=== PATIENT | male | born 1940 | race Caucasian/White ===

== ENCOUNTER 2018-10-03 16:42 | Emergency (ER) | payer OTHER ==
[~2018-10-03] VITALS: Wt 97.6 kg
[2018-10-03 16:48] VITALS: Wt 97.6 kg
[2018-10-03] MEDS ORDERED: SODIUM CHLORIDE 0.9% 1L BAG IV* STA (17:28)
[2018-10-03] MEDS ORDERED: ACETAMINOPHEN 325 MG TAB PO ONE (17:30)
[2018-10-03] MEDS ORDERED: morphine 4 MG/ML VIAL IV STA (17:34)
[2018-10-03] MEDS ORDERED: ONDANSETRON 4 MG INJ IV STA (17:34)
[2018-10-03] MEDS ORDERED: PIPER-TAZO 3.375 GM IV (PMX) 100 ML IVPB STA (17:37)
--- NOTE | 2018-10-03 17:37 | ERD ---
ER Documentation Chief Complaint Chief Complaint bib son for abd. pain x 3 days, mid abd. HPI Pleasant 78-year-old gentleman with possible recent diagnosis of colon cancer though being followed without chemo or radiation. Patient has a history of hypertension. He presents with 3 days of right-sided abdominal pain that is now worse, 8 out of 10. No nausea vomiting diarrhea or constipation. Noted to have a fever at triage. No chest pain cough or shortness of breath. ROS All systems reviewed and are negative except as per history of present illness. Medications Home Meds Reported Medications Tamsulosin Hcl* (Tamsulosin Hcl*) 0.4 Mg Cap.er.24h, 0.4 MG PO DAILY, CAP 10/03/18 [place]-3S/Dha/Epa/Fish Oil/D3 (FISH OIL + D3 SOFTGEL) 1 Each Capsule, 1 EACH PO DAILY, CAP 10/03/18 Trospium Chloride (Trospium Chloride) 20 Mg Tablet, 20 MG PO QHS, TAB 10/03/18 Atorvastatin Calcium* (Atorvastatin Calcium*) 20 Mg Tablet, 20 MG PO QHS, #30 TAB 10/03/18 Mesalamine (Lialda) 1.2 Gm Tablet.dr, 4.8 GM PO 10/03/18 Aspirin* (Aspirin* EC) 81 Mg Tablet.dr, 81 MG PO DAILY, TAB 10/03/18 Allergies Allergies: Coded Allergies: No Known Allergy (Unverified , 10/03/18) FmHx Family History: No diabetes Physical Exam Vitals Vital Signs Date Temp Pulse Resp B/P (MAP) Pulse Ox O2 O2 Flow FiO2 Time Delivery Rate 10/03/18 98.2 100 16 103/60 96 Nasal 20:35 (74) Cannula 10/03/18 113 16 96/59 (71) 96 Nasal 3.0 19:46 Cannula 10/03/18 101.3 124 19 116/80 95 16:48 (92) 10/03/18 101.3 126 19 116/80 100 16:46 (92) Physical Exam General: Well developed, well nourished, no acute distress Head: Normocephalic, atraumatic. Eyes: Pupils equally reactive, EOM intact ENT: Moist mucous membranes Neck: Supple, no lymphadenopathy Respiratory: Lungs clear bilaterally, no distress Cardiovascular: Tachycardia, no murmurs, rubs, or gallops Abdominal: Slightly protuberant, right-sided abdominal tenderness, right upper quadrant greater than right lower quadrant, mild voluntary guarding, mild peritonitis. : Deferred MSK: No edema, no unilateral swelling, 5/5 strength Neurologic: Alert and oriented, moving all extremities, normal speech, no focal weakness, no cerebellar signs Skin: No rash Psych: Normal mood Result Diagram: 10/03/18 1750 10/03/18 9491 Results 24 hrs Laboratory Tests Test 10/03/18 17:49 10/03/18 17:50 10/03/18 17:52 10/03/18 20:45 Prothrombin Time 17.8 Sec Prothrombin Time 1.4 Ratio INR International 1.46 Normalized Ratio Activated 30.2 Sec Partial Thromboplas t Time Sodium Level 141 mmol/L Potassium Level 3.6 mmol/L Chloride Level 103 mmol/L Carbon Dioxide 24 mmol/L Level Anion Gap 14 Blood Urea Nitrogen 31 mg/dl Creatinine 1.47 mg/dl Est Glomerular mL/min Filtrat Rate mL/min Glucose Level 158 mg/dl Calcium Level 10.1 mg/dl Total Bilirubin 1.3 mg/dl Direct Bilirubin 0.00 mg/dl Indirect Bilirubin 1.3 mg/dl Aspartate Amino 29 IU/L Transf (AST/SGOT) Alanine 20 IU/L Aminotransferase (A LT/SGPT) Alkaline 77 IU/L Phosphatase Troponin I 0.027 ng/ml Total Protein 8.0 g/dl Albumin 4.3 g/dl Globulin 3.70 g/dl Albumin/Globulin 1.16 Ratio Lipase < 10 U/L White Blood Count 22.6 10^3/ul Red Blood Count 5.07 10^6/ul Hemoglobin 14.9 g/dl Hematocrit 45.3 % Mean Corpuscular 89.3 fl Volume Mean Corpuscular 29.4 pg Hemoglobin Mean Corpuscular 32.9 g/dl Hemoglobin Concent Red Cell 13.2 % Distribution Width Platelet Count 182 10^3/UL Mean Platelet 11.4 fl Volume Immature 0.500 % Granulocytes % Neutrophils % 87.7 % Lymphocytes % 4.5 % Monocytes % 7.0 % Eosinophils % 0.0 % Basophils % 0.3 % Nucleated Red Blood 0.0 /100WBC Cells % Immature 0.120 10^3/ul Granulocytes # Neutrophils # 19.8 10^3/ul Lymphocytes # 1.0 10^3/ul Monocytes # 1.6 10^3/ul Eosinophils # 0.0 10^3/ul Basophils # 0.1 10^3/ul Nucleated Red Blood 0.0 10^3/ul Cells # POC Venous Lactate 2.0 mmol/L 0.8 mmol/L Current Medications Medications Dose Sig/Sandro Start Time Status Last (Trade) Ordered Route PRN Stop Time Admin Dose Reason Admin Sodium 2,930 ml BOLUS OVER 2 10/03/18 DC 10/03/18 Chloride HOURS STAT 17:28 17:49 (NS) IV* 10/03/18 17:29 650 mg ONCE ONCE 10/03/18 DC 10/03/18 Acetaminophen PO 17:30 17:49 (Tylenol 10/03/18 17:31 Tab) Morphine 4 mg ONCE STAT 10/03/18 DC 10/03/18 Sulfate IV 17:34 17:50 (morphine) 10/03/18 17:35 Ondansetron 4 mg ONCE STAT 10/03/18 DC 10/03/18 HCl (Zofran IV 17:34 17:50 Inj) 10/03/18 17:35 Piperacillin 100 ml @ ONCE STAT 10/03/18 DC 10/03/18 Sod/ 200 mls/hr IVPB 17:37 17:50 Tazobactam 10/03/18 18:06 Sod Procedures/MDM EKG, MONITORS, & DIAGNOSTIC IMAGING: EKG: I reviewed and interpreted a 12-lead EKG. Rhythm: Sinus tachycardia ST Changes: No contiguous ST segment elevations T waves: No contiguous T wave inversions Impression: No evidence of acute cardiac ischemia Gallbladder ultrasound: IMPRESSION: 1. Cholelithiasis. There is significant gallbladder wall thickening. In the right clinical setting this is suggestive of acute cholecystitis.. 2. No biliary duct dilatation. 3. Mild fatty liver. 4. Pancreas and aorta not visualized. 5. 7.5 cm right renal cyst RPTAT: CT abdomen and pelvis: IMPRESSION: 1. Cholelithiasis with acute cholecystitis. 2. Bamboo appearance of the thoracic and lumbar spine and coronal reformatted images with bony fusion of the sacroiliac joints. 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 3. Diverticulosis of the descending and sigmoid colon. No acute diverticulitis. 4. 2 mm nonobstructing left renal stone. 5. 8.2 mm cyst lower pole right kidney. 6. Areas of airspace disease at both lung bases, atelectasis versus pneumonia. CXR: IMPRESSION: Bibasilar atelectasis, worse in the left lung base. RPTAT: [facility] LAB INTERPRETATION: * Leukocytosis of 22 consistent with severe infection * Mild renal insufficiency, lactic acid of 2.0 down to 0.8 * Nonobstructive liver profile MEDICAL DECISION MAKING: Patient with fever and right-sided abdominal pain. This raises the concern for sepsis possibly secondary to acute cholecystitis versus acute appendicitis. The patient needs sepsis workup, advanced imaging including CT of the abdomen pelvis and ultrasound of the gallbladder. No signs or symptoms concerning for cardiopulmonary process. ER COURSE: * Patient given a 30 cc/kg bolus of saline, antipyretics, blood cultures prior to empiric broad-spectrum antibiotics in the form of Zosyn. * Pain medication provided. * The patient's laboratory testing and diagnostic imaging is consistent with acute cholecystitis. * The patient's blood pressure did drop into the 90s temporarily but this was secondary to the patient not being hooked back up to his IV fluids after coming back from CT. The patient was immediately reconnected and resuscitation efforts improved his blood pressure without incident. * The patient's lactic acid is improved. His blood pressure remained stable. His heart rate is improved. At this point he is stable for transfer. CONSULTATION: Emmanuel YUAN. Dr. Correa DISPOSITION PLAN: Accepting care team and consultations: I discussed the current laboratory data, diagnostic imaging and emergency care provided. Admitting team: As above Admitting team indication: Emmanuel member, stable for transfer. They can definitively care for his acute cholecystitis and sepsis. Sepsis Documentation: Patient's infectious symptoms have not stabilized and the patient is at risk of rapid decompensation. The patient will be admitted for careful hydration, antibiotic therapy, and infectious source control. SEVERE SEPSIS CRITERIA: Infectious source: Acute cholecystitis End organ damage indicated by: No evidence of endorgan dysfunction at this time SEPSIS MANAGEMENT Time of recognition of sepsis: Upon MD assessment. Time of recognition of severe sepsis: No severe sepsis at this time. Time of recognition of septic shock: No septic shock at this time. 3 HOUR BUNDLE Blood cultures x 2 before broad-spectrum antibiotics: Yes 30 ml/kg NS bolus completed Initial lactate 2.0 Repeat lactate 0.8 SEPTIC SHOCK ASSESSMENT: No lactic acid > 4.0 No persistent hypotension (SBP < 90 or 40 mmHg drop, MAP < 65) despite 30 mL/kg IV fluid bolus VOLUME REASSESSMENT FOR SEPTIC SHOCK: The patient does not meet criteria for septic shock in the emergency department at this time PERSISTENT HYPOTENSION TREATMENT: Comfort care no Central line not Required Vasopressor started not required I considered further perfusion assessment with CVP measurement, SCVO2, bedside ultrasound volume assessment, passive leg raise, trial of further fluid bolus. And proceeded with 30 ml/kg fluid bolus of NSS, broad spectrum antibiotics, and admission. CRITICAL CARE Critical care time 35 minutes Emergent fluid management while maintaining close respiratory support. P rovision of immediate and broad-spectrum antibiotic therapy. Simultaneous assessment for possible sources in order to direct targeted therapy. Consideration for invasive and chemical support to prevent cardiopulmonary collapse. Critical care time is independent of procedures performed. Departure Diagnosis: Primary Impression: Acute cholecystitis Additional Impressions: Sepsis Sepsis type: sepsis due to unspecified organism Qualified Codes: A41.9 - Sepsis, unspecified organism Right upper quadrant abdominal pain Acute renal insufficiency Condition: Stable MCKENNA ASTORGA MD Oct 03, 2018 17:37
[2018-10-03] MEDS ORDERED: ASPI-817 PO (18:06)
[2018-10-03] MEDS ORDERED: MESA1.2T2 PO (18:07)
[2018-10-03] MEDS ORDERED: ATOR20TA38 PO (18:08)
[2018-10-03] MEDS ORDERED: TROS20TA2 PO (18:09)
[2018-10-03] MEDS ORDERED: TAMS0.4C2 PO (18:10)
[2018-10-03] MEDS ORDERED: OMEG-80 PO (18:10)
[2018-10-03 21:57] VITALS: BP 111/72; PULSE 89; RESP 16
== END 2018-10-03 22:10 | disposition short-term general hospital (02) ==
LOC: E/R 16:42
DX: K81.0 Acute cholecystitis (principal); A41.9 Sepsis, unspecified organism; N28.9 Disorder of kidney and ureter, unspecified; I10 Essential (primary) hypertension; Z79.82 Long term (current) use of aspirin; Z85.038 Personal history of other malignant neoplasm of large intestine
CPT/HCPCS: 36415; 71045; 74176; 76705; 80053; 83605; 83690; 84484; 85025; 85610; 85730; 87040; 96374; 96375; 99291; J2270; J2405; J2543; J7030; 93005